=== PATIENT | female | born 1955 | race Caucasian/White ===

== ENCOUNTER 2019-04-10 11:43 | Observation (INO) ==
[2019-04-10 12:09] LABS: Microscopic, Urine URINE MICROSCOPIC (MICROSCOPIC)
[2019-04-10 12:10] LABS: Appearance,Urine CLEAR (Clear); Blood, Urine Negative (Negative); Color,Urine YELLOW (Yellow); Glucose,Urine (UA) Negative (Negative); Ketones,Urine Negative (Negative); Leukocyte Esterase,Urine TRACE (Negative); Protein,Urine TRACE (Negative); Specific Gravity, Urine >= 1.030 (1.005-1.030); Urobilinogen,Urine 0.2 EU/dl (0.2)
--- NOTE | 2019-04-10 12:10 | Emergency Department Note ---
ED Disposition Clinical Impression: Hypokalemia Hypotension Qualifiers: Hypotension type: unspecified hypotension type Qualified Code(s): I95.9 - Hypotension, unspecified Disposition: Admitted as Observation Condition on Discharge: Fair Referrals: Provider,Referral, [Primary Care Provider] - - Critical Care Critical Care Time: Yes Attestation: On 04/10/19, the high probability of a clinically significant, sudden or life threatening deterioration of the following system(s) required my full and direct attention, intervention and personal management. The time I documented below is in addition to time spent performing reported procedures but includes the following listed in this critical care notation. Total Critical Care Time: 30 Vital system(s) involved:: Circulatory Failure, Metabolic Failure My critical care processes included: Assessment & monitoring of V/S, Initial and Re-exams, Data Review/Interpretation, Coordinating Care, Medication Orders and management, Documentation Medical Decision Making - Beto Inquiry Pt receiving controlled substance: No Vital Signs: 04/10/19 11:44 04/10/19 12:14 04/10/19 12:30 Temperature 97.9 F Temperature Source Oral Pulse Rate [Right] 72 68 70 Respiratory Rate 18 20 20 Blood Pressure [Right Arm] 117/67 85/44 L 80/50 L Blood Pressure Mean [Right Arm] 83 57 60 Blood Pressure Source [Right Arm] Automatic Cuff Manual Cuff/ Auscultation Blood Pressure Position [Right Arm] Supine 02 Sat by Pulse Oximetry 97 98 98 Oxygen Delivery Method Room Air Room Air 04/10/19 13:24 04/10/19 14:00 Temperature Temperature Source Pulse Rate [Right] 87 64 Respiratory Rate 18 18 Blood Pressure [Right Arm] 92/54 L 90/66 L Blood Pressure Mean [Right Arm] 66 74 Blood Pressure Source [Right Arm] Blood Pressure Position [Right Arm] 02 Sat by Pulse Oximetry 94 L Oxygen Delivery Method Room Air - Lab Data Lab Results 04/10/19 11:56: Urine Color Yellow, Urine Appearance Clear, Urine pH 6.0, Ur Specific [place] >= 1.030, Urine Protein Trace, Urine Glucose (UA) Negative, Urine Ketones Negative, Urine Blood Negative, Urine Nitrate Negative, Urine Bilirubin Negative, Urine Urobilinogen 0.2, Ur Leukocyte Esterase Trace, Urine RBC None, Urine WBC Occasional, Ur Squamous Epith Cells 50-100, Urine Bacteria Trace 04/10/19 11:56: WBC 9.3, RBC 4.51, Hgb 13.3, Hct 40.9, MCV 90.6, MCH 29.5, MCHC 32.6, RDW 12.8, Plt Count 288, MPV 7.8, Neut % (Auto) 63.3, Lymph % (Auto) 27.3, [place] % (Auto) 5.3, Eos % (Auto) 3.3, Baso % (Auto) 0.8, Neut # (Auto) 5.9, Lymph # (Auto) 2.5, [place] # (Auto) 0.5, Eos # (Auto) 0.3, Baso # (Auto) 0.1 04/10/19 11:56: Sodium 140, Potassium 2.7 L*, Chloride 104, Carbon Dioxide 27, Anion Gap 11.7, BUN 15, Creatinine 1.33 H, Estimated Creat Clear 54, Estimated GFR 40 L, Est GFR ( Amer) 49 L, Glucose 88, Calcium 9.1, Total Bilirubin 0.4, AST 20, ALT 23, Alkaline Phosphatase 77, Troponin I < 0.02, Total Protein 7.5, Albumin 3.7, Globulin 3.8 H, Albumin/Globulin Ratio 1.0 L, Amylase 48, Lipase 108 04/10/19 11:56: Lactate 0.7 04/10/19 11:56: TSH 3.24, Free T4 Index 5.9 L, Thyroxine (T4) 19.0 H, T3 Uptake 31 Result diagrams: 04/10/19 11:56 04/10/19 11:56 Orders (Tests/Meds): ED MEDICATIONS Generic Name Dose Route Start Last Admin Trade Name Freq PRN Reason Stop Dose Admin Potassium Chloride/Water 100 mls @ 50 mls/hr 04/10/19 13:00 04/10/19 13:13 Potassium Chloride 20meq/100ml Ivpb IV 04/10/19 14:59 50 mls/hr ONCE ONE Administration Discontinued Medications Generic Name Dose Route Start Last Admin Trade Name Freq PRN Reason Stop Dose Admin Sodium Chloride 1,000 mls @ 999 mls/hr 04/10/19 12:15 04/10/19 12:11 Sod Chlor 0.9% 1000ml Bag IV 04/10/19 13:15 999 mls/hr .Q1H1M DAVON Administration Sodium Chloride 1,000 mls @ 999 mls/hr 04/10/19 12:45 04/10/19 12:43 Sod Chlor 0.9% 1000ml Bag IV 04/10/19 13:45 999 mls/hr .Q1H1M DAVON Administration Ioversol 75 ml 04/10/19 12:59 04/10/19 13:02 Rad-Optiray 350 100ml Vial IV 04/10/19 13:00 75 ml ONCE ONE Administration Protocol Ondansetron HCl 4 mg 04/10/19 12:03 04/10/19 12:11 Zofran 4mg/2ml Vial IV 04/10/19 12:04 4 mg ONCE ONE Administration Potassium Chloride 40 meq 04/10/19 12:36 04/10/19 13:13 Klor-Con 20meq Tablet PO 04/10/19 12:37 40 meq ONCE ONE Administration Sodium Chloride 10 ml 04/10/19 12:59 04/10/19 13:02 Rad-Saline Flush 10ml Syringe IV 04/10/19 13:00 10 ml ONCE ONE Administration ORDERS Category Date Time Status Diarrhea 6-11 Panel, Cdiff PCR Stat Lab 04/10/19 12:24 Ordered Blood Culture Stat Micro 04/10/19 11:56 Received ECG Request by /Darion Stat Y 04/10/19 12:03 Ordered - Radiology Data #1 Image(s): Chest Image Reviewed: Yes I reviewed the patient's radiology image Preliminary Findings: Normal/NAD - CT Data CT Scan: Head, Abdomen, Pelvis Time Received: 13:[address] Reviewed: Yes: I have viewed the radiologist's interpretation Findings Narrative: Abdo/Pelvis: FINDINGS: LOWER THORAX: Atelectatic changes are present in the lung bases. ABDOMEN & PELVIS: The liver, spleen, adrenal glands, and pancreas have an unremarkable appearance. No renal or ureteral calculi or hydronephrosis. There is a 10 mm left renal cyst noted. The gallbladder is distended. Unremarkable appendix. There are scattered fluid-filled loops of small and large bowel with air-fluid levels. These loops do not appear distended consistent with ileus/enteritis. A small hyperdensity is present in the ascending colon and may be due to ingested medication. Prior hysterectomy. There are degenerative changes in the spine. A sclerotic focus is present in the left femoral neck at 1.7 cm consistent with a bone island. IMPRESSION: 1. Scattered fluid-filled loops of small and large bowel nondistended consistent with enteritis/colitis. Dictated by: Felix Enciso MD 04/10/2019 13:17 Electronically signed by Felix Enciso MD in [place] 04/10/2019 13:17 Head: FINDINGS: No midline shift, mass effect, intracranial hemorrhage, hydrocephalus, or extra-axial fluid collection is evident. The calvarium has an unremarkable appearance. No mastoid effusion. No sinus air-fluid level. IMPRESSION: No acute intracranial finding Dictated by: Felix Enciso MD 04/10/2019 13:13 Electronically signed by Felix Enciso MD in [place] 04/10/2019 13:13 - ECG Data Tracing #1 EKG interpreted by Abhijeet Michael MD: Rhythm: sinus Rate: 63 [place]: normal Ectopy: none Conduction: normal ST Segment Changes: none T Wave Changes: none Q Waves: none No evidence of acute ischemia or injury Low voltage QRS - Physician Consults Physician Consulted: Manjeet Time: 14:29 Reason -: Admission Comment/Response: Agrees to admit the patient to the hospital. We discussed the patient's clinical information, including history, exam, laboratory and radiology results and ED course. Per hospital procedure, I will write temporary bridge inpatient orders on the patient. Specific orders requested by the admitting physician: Half-normal saline with potassium General Adult HPI - General Chief complaint: Abdominal Pain Stated complaint: can't eat,unbalanced,nausea Time Seen by Provider: 04/10/19 12:10 Mode of Arrival: Ambulatory Limitations: No Limitations Description of Symptoms (Recalled from ER Triage Doc. by RN): Pt states for 2 weeks she has been week, feverish, vomiting, and overall not feeling well. Pt states she also has severe abd pain. - History of Present Illness HPI narrative: Brought in by a friend. She has been sick for more than a month. Says she was initially admitted to [facility] in [place] for about 3 days diagnosed with a urinary tract infection. She has been told she has some sort of kidney problems and is supposed to go in therapy "for her kidney muscles". Has had continued problems since her admission. Not urinating frequently. Poor ap petite and intake. For the past 2 weeks has been more sick. She has had a cough productive of green sputum. Green diarrhea a couple of times a day, her urine is also pea green. She thinks she had a fever when this first started a couple of weeks ago. She has generalized abdominal pain. She has a sore throat. Says she has been here to the urgent treatment center for her illness. Review of records shows that she was here on 03/18/2019 and diagnosed with sinusitis, started on Cefdinir, Flonase, and Tessalon. She lives in [place], but her friend says she does not want her to return home until she gets to feeling better so she has been staying with her in [place] for the past month. - Related Data Home Medications Medication Instructions Recorded Confirmed Baclofen [Lioresal 10mg tablet] 10 mg PO DAILY 04/10/19 04/10/19 Duloxetine HCl 60 mg PO DAILY 04/10/19 04/10/19 Estradiol 2 mg PO DAILY 04/10/19 04/10/19 Fluticasone Propionate [Flonase 1 spr NS DAILY 04/10/19 04/10/19 50mcg nasal spray 16gm] Gabapentin [Gabapentin 300mg Cap] 300 mg PO TID 04/10/19 04/10/19 Hydrocodone/Acetaminophen 1 tab PO Q4-6H PRN 04/10/19 04/10/19 [Hydrocodone-Acetamin 7.5-325] Levothyroxine Sodium 50 mcg PO DAILY 04/10/19 04/10/19 [Levothyroxine 50mcg (0.05mg) Tab] Lisinopril [Lisinopril 10mg Tab] 10 mg PO DAILY 04/10/19 04/10/19 Omeprazole 40 mg PO DAILY 04/10/19 04/10/19 Sertraline HCl [Zoloft 100mg 100 mg PO DAILY 04/10/19 04/10/19 tablet] Trazodone HCl 100 mg PO DAILY 04/10/19 04/10/19 Venlafaxine HCl [Effexor 37.5mg 37.5 mg PO DAILY 04/10/19 04/10/19 tablet] clonazePAM [Clonazepam] 1 mg PO BIDP PRN 04/10/19 04/10/19 Allergies Allergy/AdvReac Type Severity Reaction Status Date / Time Penicillins Allergy Verified 12/16/18 15:55 [facility] History - Hepatitis A Screen Drug use history?: No High risk sexual behaviors?: No History of sexually transmitted infection?: No Currently employed?: No Childcare worker?: No Do you have indoor plumbing?: Yes Do you have electricity?: Yes Attestation statement:: This patient has been screened for Hepatitis A risk factors. I have reviewed the patient's past medical history: Yes Medical History: Reports:: Diabetes Mellitus Type 1, Diabetes Mellitus Type 2 Denies:: Cancer, Internal Pacemaker, MRSA Other Surgeries: No: Pacemaker Amputation: No Fractures: Yes (foot) - Social History Smoking Status: Current every day smoker Alcohol Intake: never Occupational Status: other Housing: apartment ROS Obtained: Yes All systems reviewed & no additional complaints - Constitutional Constitutional: Reports fatigue, Reports fever(s), Reports poor appetite, Reports malaise, Reports weakness - ENT Ears, Nose, Mouth, and Throat: Reports sore throat - Cardiovascular Cardiovascular: Denies chest pain - Respiratory Respiratory: Yes cough, No dyspnea - Gastrointestinal Gastrointestingal: Reports: abdominal pain, diarrhea, nausea - Genitourinary Female Genitourinary: Reports as per HPI Physical Exam - General General appearance: alert, in no apparent distress - Head Head exam: atraumatic, normocephalic - Eye Eye exam: Present: normal appearance, EOMI - ENT ENT exam: Present: normal oropharynx, mucous membranes moist, TM's normal bilaterally - Neck Neck exam: Present: normal inspection, trachea midline - Chest Chest inspection: Present: normal inspection, symmetric chest wall rise - Respiratory Respiratory exam: Present: normal lung sounds bilaterally. Absent: respiratory distress - Cardiovascular Cardiovascular exam: Present: regular rate, normal rhythm, normal heart sounds - Abdominal Exam Abdominal exam: Present: soft, tenderness, normal bowel sounds. Absent: distention, guarding, rebound, rigidity Abdominal tenderness: Present: diffuse, mild - Extremities Exam Extremities exam: Present: normal inspection - Neurological Exam Neurological exam: Present: alert, oriented X3, CN II-XII intact. Absent: motor sensory deficit - Psychiatric Psychiatric exam: Present: normal affect, normal mood - Skin Skin exam: Present: warm, dry
[2019-04-10 12:11] LABS: Basophils # 0.1 K/mm3 (0-0.2); Basophils % 0.8 % (0.1-2.0); Eosinophils # 0.3 K/mm3 (0.0-0.4); Eosinophils % 3.3 % (0.1-12.0); Hematocrit 40.9 % (37.0-47.0); Hemoglobin 13.3 g/dL (12.2-16.2); Lymphocytes # 2.5 K/mm3 (0.7-4.5); Lymphocytes % 27.3 % (10-50); Mean Corpuscular HGB Conc 32.6 g/dL (31.8-35.4); Mean Corpuscular Volume 90.6 fl (81-99); Mean Platelet Volume 7.8 fl (7.4-10.4); Monocytes # 0.5 K/mm3 (0.1-1.0); Monocytes % 5.3 % (1.7-9.3); Neutrophils # 5.9 K/mm3 (1.8-7.8); Neutrophils % 63.3 % (37.0-80.0); Platelet Count 288 K/mm3 (142-424); Red Blood Count 4.51 M/mm3 (4.20-5.40); Red Cell Distribution Width 12.8 % (11.5-17.5); White Blood Count 9.3 K/mm3 (4.8-10.8)
[2019-04-10 12:15] LABS: Bilirubin,Urine Negative (Negative)
[2019-04-10 12:20] LABS: Bacteria,Urine Trace /lpf; Squamous Epithelial Cell,Urine 50-100 #/hpf (0-5); WBC,Urine Occasional #/hpf (0-3)
[2019-04-10 12:23] LABS: Alanine Aminotransferase 23 U/L (12-78); Albumin Level 3.7 gm/dL (3.4-5.0); Alkaline Phosphatase 77 U/L (46-116); Amylase 48 U/L (25-115); Anion Gap 11.7 mEq/L (5-15); Aspartate Amino Transferase 20 U/L (15-37); Bilirubin,Total 0.4 mg/dL (0.2-1.0); Blood Urea Nitrogen 15 mg/dL (7-18); Calcium 9.1 mg/dL (8.5-10.1); Carbon Dioxide 27 mmol/L (21.0-32.0); Chloride 104 mmol/L (98-107); Globulin 3.8 gm/dl (1.3-3.2); Glucose 88 mg/dL (74-106); Sodium 140 mmol/L (136-145); Total Protein,Serum 7.5 gm/dL (6.4-8.2)
[2019-04-10 13:48] LABS: Free Thyroxine Index 5.9 ug/dL (5.93-13.13); Thyroid Stimulating Hormone 3.24 uIU/ml (0.358-3.740)
--- NOTE | 2019-04-10 15:26 | History & Physical Report ---
*Chief complaint: Nausea, vomiting, diarrhea; hypotension *History of present illness: Ms. Ross is a 64-year-old female who lives in [facility] with a history of kidney problems, hypertension, anxiety, hypothyroidism, and recent urinary tract infection requiring hospitalization at [facility] to receive IV antibiotics. She has been home from the hospital for several weeks and is now staying with a friend here in [place]. She has felt worse for the past 2 weeks and has been to the urgent treatment center a couple of times. She presented to [facility] emergency room with continued vomiting and diarrhea as well as diminished urinary output and a productive cough of green sputum. She states she has not been able to retain food for about the last 2 days and has had a decrease in her urinary output. She describes her diarrhea, vomitus, and urine as all being green. She does have generalized abdominal pain and a sore throat. On 03/18/2019 she was diagnosed with sinusitis and was started on Ceftin, flonase, and Tessalon Perles. With evaluation in the emergency room she was found to be hypotensive with a blood pressure running systolically in the 90s and 80s. CBC was noted to be normal; urinalysis was unremarkable; chest x-ray was without acute changes; electrolytes revealed hypokalemia with potassium of 2.7. BuN was 15 with a creatinine of 1.33. CT of the abdomen revealed a possible enteritis. She was then admitted for further evaluation and treatment. At the time of this exam in the emergency room she appears not to feel very well. She states she last vomited and had diarrhea prior to coming to the emergency room. She takes multiple medications and has been taking them sporadically as she has been able to tolerate. She feels like she did take her lisinopril this morning. She denies chest pain but is short of breath. She has diffuse abdominal pain. She denies heart palpitations and leg edema. She did have a fall yesterday but did catch herself and has had no injuries. [facility] History Medical History: Reports:: Anxiety, Depression (No problem who is fine nothing about this lady with this mammogram this is ), Diabetes Mellitus Type 1, Diabetes Mellitus Type 2 Denies:: Cancer, Gastroesophageal Reflux Disease(GERD), Gastrointestinal Bleed, Internal Pacemaker, MRSA *Have you ever received a pneumonia vaccine?: No *Have you received a flu vaccine this season?: No Other Medical History: Reports: Arthritis (Rheumatoid), Hypothyroidism Other Surgeries: Yes: Hysterectomy-Total. No: Pacemaker Amputation: No Fractures: Yes (foot) Comment: She has had surgery on both her hands or feet for her arthritis - *Social History Smoking Status: Never smoker Alcohol Intake: never *Occupational Status:: other Housing: apartment Household Members: significant other, friend(s) *Travel in the last 8 weeks: None Family Hx:: Cancer Review of Systems - Constitutional Reports body ache(s), Reports fever(s), Reports headache(s), Reports lack of energy - Eyes Reports change in vision - ENT Reports poor balance, Reports dizziness, Reports dry mouth, Reports ear pain, Reports nasal congestion, Reports sore throat, Reports dizziness - *Cardiovascular Reports shortness of breath, Denies chest pain, Denies leg swelling - *Respiratory Reports change in phlegm color, Reports chest congestion, Reports cough, Reports shortness of breath, Denies coughing up blood - *Gastrointestinal Reports abdominal pain, Reports change in bowel habits, Reports difficulty swallowing (Diffuse), Reports excessive passing of gas, Reports nausea, Reports vomiting, Denies belching, Denies constipation, Denies heartburn, Denies vomiting blood, Denies bright, red blood in stools, Denies black, tarry stools - *Genitourinary Denies painful urination Comments: Diminished urinary output; urine appears green - *Musculoskeletal Reports abnormal walking, Reports back pain (For which she takes Peshtigo and baclofen), Reports muscle weakness, Reports body aches - *Neurologic Reports abnormal walking, Reports unsteadiness, Reports dizziness, Reports frequent falls, Reports headache(s), Reports fainting, Reports weakness, Denies seizure-like activity Meds Home Medications Medication Instructions Recorded Confirmed Type Baclofen [Lioresal 10mg tablet] 10 mg PO DAILY 04/10/19 04/10/19 History Bethanechol Chloride [Urecholine 25 mg PO QID 04/10/19 04/10/19 History 25mg Tablet] Duloxetine HCl 60 mg PO DAILY 04/10/19 04/10/19 History Estradiol 2 mg PO DAILY 04/10/19 04/10/19 History Fexofenadine HCl [Allergy Relief] 180 mg PO DAILY 04/10/19 04/10/19 History Fluticasone Propionate [Flonase 1 spr NS DAILY 04/10/19 04/10/19 History 50mcg nasal spray 16gm] Gabapentin [Gabapentin 300mg Cap] 300 mg PO TID 04/10/19 04/10/19 History Hydrocodone/Acetaminophen 1 tab PO Q4-6H PRN 04/10/19 04/10/19 History [Hydrocodone-Acetamin 7.5-325] Levothyroxine Sodium 50 mcg PO DAILY 04/10/19 04/10/19 History [Levothyroxine 50mcg (0.05mg) Tab] Lisinopril [Lisinopril 10mg Tab] 10 mg PO DAILY 04/10/19 04/10/19 History Omeprazole 40 mg PO DAILY 04/10/19 04/10/19 History Potassium Chloride 20 meq PO DAILY 04/10/19 04/10/19 History Sertraline HCl [Zoloft 100mg 100 mg PO DAILY 04/10/19 04/10/19 History tablet] Trazodone HCl 100 mg PO DAILY 04/10/19 04/10/19 History Venlafaxine HCl [Effexor 37.5mg 37.5 mg PO DAILY 04/10/19 04/10/19 History tablet] clonazePAM [Clonazepam] 1 mg PO BIDP PRN 04/10/19 04/10/19 History Allergies Allergy/AdvReac Type Severity Reaction Status Date / Time Penicillins Allergy Verified 12/16/18 15:55 Exam Vital signs and Labs for Last 24 Hours: Temp Pulse Resp BP Pulse Ox 98.4 F 78 18 93/50 L 94 L 04/10/19 14:50 04/10/19 14:50 04/10/19 14:50 04/10/19 14:50 04/10/19 13:24 Laboratory Results - last 24 hr 04/10/19 11:56: Urine Color Yellow, Urine Appearance Clear, Urine pH 6.0, Ur Specific [place] >= 1.030, Urine Protein Trace, Urine Glucose (UA) Negative, Urine Ketones Negative, Urine Blood Negative, Urine Nitrate Negative, Urine Bilirubin Negative, Urine Urobilinogen 0.2, Ur Leukocyte Esterase Trace, Urine RBC None, Urine WBC Occasional, Ur Squamous Epith Cells 50-100, Urine Bacteria Trace 04/10/19 11:56: WBC 9.3, RBC 4.51, Hgb 13.3, Hct 40.9, MCV 90.6, MCH 29.5, MCHC 32.6, RDW 12.8, Plt Count 288, MPV 7.8, Neut % (Auto) 63.3, Lymph % (Auto) 27.3, [place] % (Auto) 5.3, Eos % (Auto) 3.3, Baso % (Auto) 0.8, Neut # (Auto) 5.9, Lymph # (Auto) 2.5, [place] # (Auto) 0.5, Eos # (Auto) 0.3, Baso # (Auto) 0.1 04/10/19 11:56: Sodium 140, Potassium 2.7 L*, Chloride 104, Carbon Dioxide 27, Anion Gap 11.7, BUN 15, Creatinine 1.33 H, Estimated Creat Clear 54, Estimated GFR 40 L, Est GFR ( Amer) 49 L, Glucose 88, Calcium 9.1, Total Bilirubin 0.4, AST 20, ALT 23, Alkaline Phosphatase 77, Troponin I < 0.02, Total Protein 7.5, Albumin 3.7, Globulin 3.8 H, Albumin/Globulin Ratio 1.0 L, Amylase 48, Lipase 108 04/10/19 11:56: Lactate 0.7 04/10/19 11:56: TSH 3.24, Free T4 Index 5.9 L, Thyroxine (T4) 19.0 H, T3 Uptake 31 I & O for Last 24 hours: Intake & Output 04/08/19 04/09/19 04/10/19 04/11/19 11:59 11:59 11:59 11:59 Intake Total 2099 Balance 2099 Weight 172 lb 172 lb Radiology Reports for the Last 24 Hours: 03/10/2019 CT of the abdomen/pelvis IMPRESSION: 1. Scattered fluid-filled loops of small and large bowel nondistended consistent with enteritis/colitis 04/10/2019 chest x-ray IMPRESSION: No acute findings. 04/10/2019 CT of the head IMPRESSION: No acute intracranial finding - Constitutional no acute distress, cooperative - *Routine HEENT Exam Head: Present: normocephalic, atraumatic Eye: Present: PERRL. Absent: conjunctival icterus, scleral injection ENT: Present: mucous membranes dry, oropharynx clear - *Routine Neck Exam Present: supple. Absent: carotid bruit, lymphadenopathy, thyromegaly - *Routine Respiratory Exam Present: crackles (Few bibasilar) - *Routine Cardiovascular Exam Present: RRR - *Routine Abdominal Exam Present: soft, normoactive bowel sounds, tenderness (Diffusely), distended - *Routine Extremities Exam Absent: edema, calf tenderness Comments: Scars from previous surgery on dorsal aspect of left foot and ankle - *Routine Neurological Exam Present: alert, oriented X3 - Routine Psychiatric Exam Present: anxious Assessment and Plan (1) Abdominal pain Current visit: Yes Status: Acute Category: Medical Code(s): R10.9 - Unspecified abdominal pain (2) Anxiety Current visit: Yes Status: Acute Category: Medical Code(s): F41.9 - Anxiety disorder, unspecified (3) Hypothyroidism Current visit: Yes Status: Acute Category: Medical Code(s): E03.9 - Hypothyroidism, unspecified (4) Renal insufficiency Current visit: Yes Status: Acute Category: Medical Code(s): N28.9 - Disorder of kidney and ureter, unspecified (5) Hypokalemia Current visit: Yes Status: Acute Category: Medical Code(s): E87.6 - Hypokalemia (6) Hypotension Current visit: Yes Status: Acute Qualifiers: Hypotension type: unspecified hypotension type Qualified Code(s): I95.9 - Hypotension, unspecified Category: Medical Code(s): I95.9 - Hypotension, unspecified - Assessment and plan all Dx Assessment and Plan for all problems:: Patient was given a bolus of IV fluids in the emergency room along with p.o. potassium. We will continue with IV fluids with potassium at 100/ hour. We will obtain a diarrhea panel. We will continue to monitor her blood chemistries.
--- NOTE | 2019-04-10 15:49 | Pharmacy Consult Notes ---
[facility] Pharmacy VTE Monitoring - Patient Demographics Admission date: 04/10/19 Report Date: 04/10/19 Time: 15:49 Allergies/Adverse Reactions: Patient Allergies Penicillins Allergy (Verified 12/16/18 15:55) Height: 1.55 m Weight: 79.067 kg Patient Problems: Current Active Problems Hypotension (Acute) Hypokalemia (Acute) Abdominal pain (Acute) Anxiety (Acute) Hypothyroidism (Acute) Renal insufficiency (Acute) - VTE Risk Labs: VTE Related Lab Results Hgb 13.3 g/dL (12.2-16.2) 04/10/19 11:56 Hct 40.9 % (37.0-47.0) 04/10/19 11:56 Plt Count 288 K/mm3 (142-424) 04/10/19 11:56 BUN 15 mg/dL (7-18) 04/10/19 11:56 Creatinine 1.33 mg/dL (0.55-1.02) H 04/10/19 11:56 Estimated Creat Clear 54 mL/min (50-200) 04/10/19 11:56 Was VTE Risk Assessment Performed: Yes VTE Score: 8 VTE Risk Level: Moderate Risk - Prophylaxis VTE Prophylaxis Ordered?: Yes Types of VTE Prophylaxis: TEDS Knee High Location of Applied Device: Bilateral Lower Extremeties - VTE Diagnosis Confirmed Treatment or plan recommended: Continue Current Treatment
[2019-04-10 19:07] LABS: Anion Gap 9.5 mEq/L (5-15)
[2019-04-10 19:17] LABS: Calcium 7.3 mg/dL (8.5-10.1)
[2019-04-11 06:51] LABS: Basophils % 1.1 % (0.1-2.0); Eosinophils % 3.3 % (0.1-12.0); Hematocrit 35.8 % (37.0-47.0); Lymphocytes % 27.8 % (10-50); Mean Corpuscular HGB Conc 30.2 g/dL (31.8-35.4); Mean Corpuscular Volume 92.2 fl (81-99); Mean Platelet Volume 7.5 fl (7.4-10.4); Monocytes % 5.8 % (1.7-9.3); Platelet Count 207 K/mm3 (142-424); Red Blood Count 3.89 M/mm3 (4.20-5.40); Red Cell Distribution Width 13.7 % (11.5-17.5); White Blood Count 5.8 K/mm3 (4.8-10.8)
[2019-04-11 06:52] LABS: Basophils # 0.1 K/mm3 (0-0.2); Eosinophils # 0.2 K/mm3 (0.0-0.4); Lymphocytes # 1.5 K/mm3 (0.7-4.5); Monocytes # 0.3 K/mm3 (0.1-1.0); Neutrophils # 2.6 K/mm3 (1.8-7.8)
[2019-04-11 06:58] LABS: Hemoglobin 10.8 g/dL (12.2-16.2)
[2019-04-11 07:11] LABS: Albumin Level 2.8 gm/dL (3.4-5.0); Anion Gap 10.2 mEq/L (5-15); Bilirubin,Total 0.2 mg/dL (0.2-1.0); Calcium 7.6 mg/dL (8.5-10.1); Globulin 2.9 gm/dl (1.3-3.2); Total Protein,Serum 5.7 gm/dL (6.4-8.2)
--- NOTE | 2019-04-11 08:31 | Progress Note ---
Internal Medicine - PN: Subj *Date: 04/11/19 *Time: 08:28 Interval history: Patient would like her normal home medications restarted today. She also continues with diarrhea and has a horrible cough. She has had some wheezing. She is requesting some cough medication and possibly an inhaler nebulizer treatment. She states she did not rest well throughout the night. Exam Vital signs and Labs for Last 24 Hours: Temp Pulse Resp BP Pulse Ox 98.0 F 69 18 93/50 L 96 04/11/19 04:00 04/11/19 04:00 04/11/19 04:00 04/11/19 04:00 04/11/19 04:00 Laboratory Results - last 24 hr 04/10/19 11:56: Urine Color Yellow, Urine Appearance Clear, Urine pH 6.0, Ur Specific [place] >= 1.030, Urine Protein Trace, Urine Glucose (UA) Negative, Urine Ketones Negative, Urine Blood Negative, Urine Nitrate Negative, Urine Bilirubin Negative, Urine Urobilinogen 0.2, Ur Leukocyte Esterase Trace, Urine RBC None, Urine WBC Occasional, Ur Squamous Epith Cells 50-100, Urine Bacteria Trace 04/10/19 11:56: WBC 9.3, RBC 4.51, Hgb 13.3, Hct 40.9, MCV 90.6, MCH 29.5, MCHC 32.6, RDW 12.8, Plt Count 288, MPV 7.8, Neut % (Auto) 63.3, Lymph % (Auto) 27.3, [place] % (Auto) 5.3, Eos % (Auto) 3.3, Baso % (Auto) 0.8, Neut # (Auto) 5.9, Lymph # (Auto) 2.5, [place] # (Auto) 0.5, Eos # (Auto) 0.3, Baso # (Auto) 0.1 04/10/19 11:56: Sodium 140, Potassium 2.7 L*, Chloride 104, Carbon Dioxide 27, Anion Gap 11.7, BUN 15, Creatinine 1.33 H, Estimated Creat Clear 54, Estimated GFR 40 L, Est GFR ( Amer) 49 L, Glucose 88, Calcium 9.1, Total Bilirubin 0.4, AST 20, ALT 23, Alkaline Phosphatase 77, Troponin I < 0.02, Total Protein 7.5, Albumin 3.7, Globulin 3.8 H, Albumin/Globulin Ratio 1.0 L, Amylase 48, Lipase 108 04/10/19 11:56: Lactate 0.7 04/10/19 11:56: TSH 3.24, Free T4 Index 5.9 L, Thyroxine (T4) 19.0 H, T3 Uptake 31 04/10/19 16:50: Stl Aeromonas (PCR) Not detected, Stl C. cayetanensis PCR Not detected, Stool Rotavirus (PCR) Not detected, Stl Adenov F 40/41 PCR Not detected, Stool Astrovirus (PCR) Not detected, Stool Campylobacter PCR Not detected, Stl C.difficile Tox PCR Not detected, Stool Cryptosporidium PCR Not detected, Stl E.coli Shiga Tox PCR Not detected, Stool E coli O157 PCR Not detected, Stl Enterotoxigenic E PCR Not detected, Stool EPEC (PCR) Not detected, Stool EAEC (PCR) Not detected, Stl E. histolytica PCR Not detected, Stool Giardia Lamblia PCR Not detected, Stool Salmonella PCR Not detected, Stool Sapovirus (PCR) Not detected, Stl P. shigelloides PCR Not detected, Stl S higella/EIEC PCR Not detected, St Y.enterocolitica PCR Not detected, Stool Vibrio (PCR) Not detected, Stl Vibrio cholerae PCR Not detected, Stl Norovirus GI/GII PCR Not detected 04/10/19 18:43: Sodium 143, Potassium 3.5 D, Chloride 112 H, Carbon Dioxide 25, Anion Gap 9.5, BUN 12, Creatinine 0.98 D, Estimated Creat Clear 73, Estimated GFR 58 L, Est GFR ( Amer) 70 D, Glucose 108 H D, Calcium 7.3 L D 04/11/19 06:22: WBC 5.8 D, RBC 3.89 L, Hgb 10.8 L D, Hct 35.8 L, MCV 92.2, MCH 27.8, MCHC 30.2 L, RDW 13.7, Plt Count 207 D, MPV 7.5, Neut % (Auto) 62.0, Lymph % (Auto) 27.8, [place] % (Auto) 5.8, Eos % (Auto) 3.3, Baso % (Auto) 1.1, Neut # (Auto) 2.6, Lymph # (Auto) 1.5, [place] # (Auto) 0.3, Eos # (Auto) 0.2, Baso # (Auto) 0.1 04/11/19 06:22: Sodium 142, Potassium 4.2, Chloride 113 H, Carbon Dioxide 23, Anion Gap 10.2, BUN 9, Creatinine 0.84, Estimated Creat Clear 73, Estimated GFR 69, Est GFR ( Amer) 83, Glucose 79 D, Calcium 7.6 L, Total Bilirubin 0. 2, AST 11 L D, ALT 16 D, Alkaline Phosphatase 59, Total Protein 5.7 L, Albumin 2.8 L D, Globulin 2.9, Albumin/Globulin Ratio 1.0 L I & O for Last 24 hours: Intake & Output 04/08/19 04/09/19 04/10/19 04/11/19 11:59 11:59 11:59 11:59 Intake Total 3783 / 3783 Balance 3783 / 3783 Weight 172 lb 174 lb 5 oz - Constitutional no acute distress - *Routine Respiratory Exam Present: wheezes. Absent: rales - *Routine Cardiovascular Exam Present: RRR - *Routine Abdominal Exam Present: soft, normoactive bowel sounds, tenderness (diffuse) - *Routine Extremities Exam Absent: cyanosis, clubbing, edema - *Routine Skin Exam Present: warm. Absent: rash - *Routine Neurological Exam Present: alert, oriented X3 Assessment and Plan (1) Abdominal pain Current visit: Yes Status: Acute Category: Medical Code(s): R10.9 - Unspecified abdominal pain (2) Anxiety Current visit: Yes Status: Acute Category: Medical Code(s): F41.9 - Anxiety disorder, unspecified (3) Hypothyroidism Current visit: Yes Status: Acute Category: Medical Code(s): E03.9 - Hyp othyroidism, unspecified (4) Renal insufficiency Current visit: Yes Status: Acute Category: Medical Code(s): N28.9 - Disorder of kidney and ureter, unspecified (5) Hypokalemia Current visit: Yes Status: Acute Category: Medical Code(s): E87.6 - Hypokalemia (6) Hypotension Current visit: Yes Status: Acute Qualifiers: Hypotension type: unspecified hypotension type Qualified Code(s): I95.9 - Hypotension, unspecified Category: Medical Code(s): I95.9 - Hypotension, unspecified (7) Diarrhea Current visit: Yes Status: Acute Category: Medical Code(s): R19.7 - Diarrhea, unspecified (8) Cough Current visit: Yes Status: Acute Category: Medical Code(s): R05 - Cough - Assessment and plan all Dx Assessment and Plan for all problems:: We will start patient on some duo nebs and Tessalon for her wheezing and cough. Will discuss which medications to continue with Dr. Burroughs. The patient is concerned about her diarrhea. Diarrhea panel is negative and potassium and renal functions have normalized. Abdominal CT questioned colitis versus enteritis. This could likely be an inflammatory colitis. Will discuss possibly adding some steroids with Dr. Burroughs or having the patient see Dr. Campbell tomorrow.
--- NOTE | 2019-04-11 21:08 | Electrocardiograph Report ---
APPROVED REPORT Exam: Resting ECG HR:63 bpm ECG Measurements Heart Rate 63 AXES DC 176 P 31 QRSd 72 QRS 33 QT 422 T81 QTc 431 <Conclusion> Normal sinus rhythm Low voltage QRS Borderline ECG Electronically signed by : Bryce Malik, 04/11/2019 21:07:35
--- NOTE | 2019-04-12 08:34 | Progress Note ---
[facility] Anesthesia Checklist - Patient Identification Patient Identification: Arm Band, Verbal (Name & ) - Structural Data Admitted From: Inpatient Planned Operative Procedure/s: Colonoscopy Consent for Planned Operative Procedure(s) Verified: Yes Verified Documents: Surgical Consent, History and Physical - NPO Status Verified Time NPO: 00:00 - Chart Verification Results Verified: CBC, BMP - Additional verifications Anesthesia Reactions: No - Airway Assessment C-Spine Mobility Assessed: Yes TMJ Mobility Assessed: Yes Dentition: Edentulous - Neurological Assessment Level of Consciousness: Awake, Alert, Appropriate, Follows Commands Hx Seizures: No Numbness or tingling in extremities: No - Anesthesia Plan Anesthesia Risk discussed: Yes Anesthesia Plan: Verified ASA Class: II Anesthesia Type: MAC [facility] History I have reviewed the patient's past medical history: Yes Medical History: Reports:: Anxiety, Depression (No problem who is fine nothing about this lady with this mammogram this is ), Heart Murmur Denies:: Cancer, Gastroesophageal Reflux Disease(GERD), Gastrointestinal Bleed, Internal Pacemaker, MRSA *Have you ever received a pneumonia vaccine?: Yes *Have you received a flu vaccine this season?: Yes Other Medical History: Reports: Arthritis (Rheumatoid), Hypothyroidism Anesthesia experience/problems:: no complications Laterality Cases: Bilateral: Other Other Surgeries: Yes: Hysterectomy-Total, Other. No: Pacemaker Amputation: No Fractures: Yes (foot) - *Social History Educational Level: Attended High School Smoking Status: Never smoker Alcohol Intake: never Substance Use Type: denies use *Occupational Status:: disabled Housing: apartment Household Members: significant other, friend(s) *Travel in the last 8 weeks: None - Psychiatric History Pschychiatric History:: Reports:: Anxiety, Depression (No problem who is fine nothing about this lady with this mammogram this is ) Family Hx:: Cancer
--- NOTE | 2019-04-12 08:42 | Procedure Note ---
[facility] Procedure Note Procedure Note:: Colonoscopy Procedure Report: Colonoscopy with cold biopsies Endoscopist: John Campbell II, MD Referring physician: Justin Burroughs MD Date of Procedure: April 12, 2019 Equipment: Olympus 180 variable stiffness pediatric colonoscope Sedation: MAC sedation Indication: Mrs. Ross is a 64-year-old female with watery diarrhea for 1 month. The patient was hospitalized at [facility] and received IV antibiotics for urosepsis. She presented to [facility] with vomiting and diarrhea and diminished urinary output. The patient did have a CT scan of the abdomen which showed scattered fluid-filled loops of small and large bowel which was nondistended and most consistent with enterocolitis. Her PCR gastrointestinal panel was negative for pathogens. The patient reports no rectal bleeding, abdominal pain or crampy discomfort. She has lost 15 pounds. She does state that her diarrhea is primarily watery diarrhea. She the has had routine colonoscopies for surveillance/screening and her last colonoscopy was 3 to 4 years ago. She reports no family history of colitis, Crohn's disease or colon cancer. The patient did have volume depletion with the diarrhea and hypokalemia. She was initially hypotensive as well. Procedure: Prior to the procedure, a history and physical exam was performed, and patient's medications and allergies were reviewed. The risks, benefits and alternatives of the sedation and procedure were discussed with the patient. All questions w ere answered and informed consent was obtained. The patient was brought to the procedure room. Patient identification and proposed procedure were verified by the physician and the nurse. The patient was placed in a left lateral decubitus position and the scope was passed under direct vision. Throughout the procedure, the patient's blood pressure, pulse, and oxygen saturations were monitored continuously. The colonoscopy was accomplished without difficulty. The patient tolerated the procedure well. Findings: On digital rectal examination there was normal rectal tone. There were no external hemorrhoids. The colonoscope was introduced through the anal canal to the rectum and advanced to the cecum. The ileocecal valve and appendiceal orifice were identified. The scope was advanced a short distance into the ileum which appeared grossly normal. The scope was then withdrawn into the colon. The cecum, ascending, transverse, descending, sigmoid and rectum were grossly normal. Cold biopsies were taken from both the right and left colon to rule out microscopic colitis. There were no mucosal abnormalities identified. Upon retroflexion within the rectum there were grade 1 internal hemorrhoids.The preparation was fair throughout with Umbarger Preparation Score of 7 out of 9. The cecal time was 10 minutes. Impression: 1. Normal colonoscopy with intubation of the terminal ileum Plan: I will follow-up the biopsies. I would recommend dietary measures, probiotics and possibly the addition of EnteraGam and/or Alinia. I will discuss the findings with patient and family.
--- NOTE | 2019-04-12 12:51 | Progress Note ---
Internal Medicine - PN: Subj *Date: 04/12/19 *Time: 12:51 Interval history: See the colonoscopy report by Dr. Campbell. She is groggy post endoscopy. We will keep her tonight and discharge her in the morning. She will follow-up with her doctor in [place]. Exam Vital signs and Labs for Last 24 Hours: Temp Pulse Resp BP Pulse Ox 97.5 F L 72 16 106/59 L 97 04/12/19 09:58 04/12/19 09:58 04/12/19 09:58 04/12/19 09:58 04/12/19 09:58 I & O for Last 24 hours: Intake & Output 04/10/19 04/11/19 04/12/19 04/13/19 11:59 11:59 11:59 11:59 Intake Total 4143 / 4143 1266 / 1266 Output Total 400 / 400 Balance 4143 / 4143 866 / 866 Weight 172 lb 174 lb 5.006 oz 174 lb 4 oz Microbiology Reports for the Last 24 Hours: Microbiology 04/10/19 11:56 Blood Blood Culture - Preliminary NO GROWTH AFTER 48 HOURS 04/10/19 11:56 Blood Blood Culture - Preliminary NO GROWTH AFTER 48 HOURS - Constitutional no acute distress - *Routine HEENT Exam Head: Present: normocephalic ENT: Present: mucous membranes moist - Routine Chest/Breast/Axilla Exam Chest wall: Absent: tenderness - *Routine Respiratory Exam Present: CTA bilaterally - *Routine Cardiovascular Exam Present: RRR - *Routine Abdominal Exam Present: soft (Hyperactive bowel sounds post endoscopy) - *Routine Extremities Exam Absent: edema - *Routine Neurological Exam Present: alert, oriented X3 Assessment and Plan (1) Abdominal pain Current visit: Yes Status: Acute Category: Medical Code(s): R10.9 - Unspecified abdominal pain (2) Anxiety Current visit: Yes Status: Acute Category: Medical Code(s): F41.9 - Anxiety disorder, unspecified (3) Hypothyroidism Current visit: Yes Status: Acute Category: Medical Code(s): E03.9 - Hypothyroidism, unspecified (4) Renal insufficiency Current visit: Yes Status: Acute Category: Medical Code(s): N28.9 - Disorder of kidney and ureter, unspecified (5) Hypokalemia Current visit: Yes Status: Acute Category: Medical Code(s): E87.6 - Hypokalemia (6) Hypotension Current visit: Yes Status: Acute Qualifiers: Hypotension type: unspecified hypotension type Qualified Code(s): I95.9 - Hypotension, unspecified Category: Medical Code(s): I95.9 - Hypotension, unspecified (7) Diarrhea Current visit: Yes Status: Acute Category: Medical Code(s): R19.7 - Diarrh ea, unspecified (8) Cough Current visit: Yes Status: Acute Category: Medical Code(s): R05 - Cough - Assessment and plan all Dx Assessment and Plan for all problems:: Plan discharge in a.m. We discussed the change in her medication regimen. She will follow-up with her doctor in [place].
--- NOTE | 2019-04-13 08:39 | Progress Note ---
Internal Medicine - PN: Subj *Date: 04/13/19 *Time: 08:36 Interval history: The patient is stable and ready for discharge. She actually seems pleased this morning with the changes that we have made in her medications! She is complementary of her care here. Her diarrhea seems to have resolved yesterday. She will be discharged. She is to follow-up with her doctor in [place]. Exam Vital signs and Labs for Last 24 Hours: Temp Pulse Resp BP Pulse Ox 98.0 F 82 18 132/78 98 04/13/19 08:00 04/13/19 08:00 04/13/19 08:00 04/13/19 08:00 04/13/19 08:00 I & O for Last 24 hours: Intake & Output 04/10/19 04/11/19 04/12/19 04/13/19 11:59 11:59 11:59 11:59 Intake Total 4143 / 4143 1266 / 1266 440 / 440 Output Total 400 / 400 Balance 4143 / 4143 866 / 866 440 / 440 Weight 172 lb 174 lb 5.006 oz 174 lb 4 oz 174 lb 5 oz Microbiology Reports for the Last 24 Hours: Microbiology 04/10/19 11:56 Blood Blood Culture - Preliminary NO GROWTH AFTER 48 HOURS 04/10/19 11:56 Blood Blood Culture - Preliminary NO GROWTH AFTER 48 HOURS - Constitutional no acute distress - *Routine HEENT Exam Head: Present: normocephalic Eye: Present: PERRL ENT: Present: mucous membranes moist - Routine Chest/Breast/Axilla Exam Chest wall: Absent: tenderness - *Routine Respiratory Exam Present: CTA bilaterally (A faint wheezes heard on the right. Otherwise the lungs are clear.) - *Routine Cardiovascular Exam Present: RRR. Absent: murmur - *Routine Abdominal Exam Present: soft. Absent: tenderness - *Routine Extremities Exam Absent: edema - *Routine Neurological Exam Present: alert, oriented X3 Assessment and Plan (1) Abdominal pain Current visit: Yes Status: Acute Category: Medical Code(s): R10.9 - Unspecified abdominal pain (2) Anxiety Current visit: Yes Status: Acute Category: Medical Code(s): F41.9 - Anxiety disorder, unspecified (3) Hypothyroidism Current visit: Yes Status: Acute Category: Medical Code(s): E03.9 - Hypothyroidism, unspecified (4) Renal insufficiency Current visit: Yes Status: Acute Category: Medical Code(s): N28.9 - Disorder of kidney and ureter, unspecified (5) Hypokalemia Current visit: Yes Status: Acute Category: Medical Code(s): E87.6 - Hypokalemia (6) Hypotension Current visit: Yes Status: Acute Qualifiers: Hypotension type: unspecified hypotension type Qualified Code(s): I95.9 - Hypotension, unspecified Category: Medical Code(s): I95.9 - Hypotension, unspecified (7) Diarrhea Current visit: Yes Status: Acute Category: Medical Code(s): R19.7 - Diarrhea, unspecified (8) Cough Current visit: Yes Status: Acute Category: Medical Code(s): R05 - Cough - Assessment and plan all Dx Assessment and Plan for all problems:: Discharge. See medication list. She has a Ventolin inhaler at home and I encouraged her to use that at least 3 times a day.
--- NOTE | 2019-04-15 21:39 | Discharge Summary ---
General - General Admission date:: 04/10/19 Discharge date: 04/13/19 HPI HPI: Ms. Ross is a 64-year-old female who lives in [place] with a history of kidney problems, hypertension, anxiety, hypothyroidism, and recent urinary tract infection requiring hospitalization at [facility] to receive IV antibiotics. She has been home from the hospital for several weeks and is now staying with a friend here in [place]. She has felt worse for the past 2 weeks and has been to the urgent treatment center a couple of times. She presented to [facility] emergency room with continued vomiting and diarrhea as well as diminished urinary output and a productive cough of green sputum. She states she has not been able to retain food for about the last 2 days and has had a decrease in her urinary output. She describes her diarrhea, vomitus, and urine as all being green. She does have generalized abdominal pain and a sore throat. On 03/18/2019 she was diagnosed with sinusitis and was started on Ceftin, flonase, and Tessalon Perles. With evaluation in the emergency room she was found to be hypotensive with a blood pressure running systolically in the 90s and 80s. CBC was noted to be normal; urinalysis was unremarkable; chest x-ray was without acute changes; electrolytes revealed hypokalemia with potassium of 2.7. BuN was 15 with a creatinine of 1.33. CT of the abdomen revealed a possible enteritis. She was then admitted for further evaluation and treatment. At the time of this exam in the emergency room she appears not to feel very well. She states she last vomited and had diarrhea prior to coming to the emergency room. She takes multiple medications and has been taking them sporadically as she has been able to tolerate. She feels like she did take her lisinopril this morning. She denies chest pain but is short of breath. She has diffuse abdominal pain. She denies heart palpitations and leg edema. She did have a fall yesterday but did catch herself and has had no injuries. Hospital Course Hospital Course: The patient's abdominal CT showed enteritis/colitis. Her diarrhea panel was negative. She had a chest x-ray showing nothing acute. She also had a head CT showing nothing acute. She was admitted and given a bolus of IV fluids in the emergency room along with p.o. potassium for hypokalemia. Dr. Burroughs did discuss with the patient that it was highly unusual to be on four antidepressants that she had been taking in combination. He did omit some of these medications. The patient's potassium normalized and her blood pressure improved. The patient was upset that she was not receiving her normal medications. She was also concerned that she was not getting enough gabapentin as she stated she took 900 mg 4 times a day. She was also worried about not getting her Vicodin that she took for pain. Dr. Burroughs ordered a scheduled dose of the Vicodin and increased her gabapentin to 600 mg 3 times a day. GI was consulted for her diarrhea and she was started on some Imodium. She was also complaining of a cough and some wheezing, therefore duo nebs and Tessalon were ordered. She was seen in consultation by Dr. Campbell who performed a colonoscopy. It was normal. He recommended dietary measures, probiotics, and possibly the addition of Alinia. The patient wanted to stay an extra day as she felt groggy the day of her colonoscopy. She was kept overnight for monitoring. Her blood cultures showed no growth. By 04/13/2019, the patient was ready to be discharged. She actually seemed pleased with the changes that had been made in her medications and was complementary of her care at [facility]. Her diarrhea resolved and she was stable to be discharged and will follow up with her physician in [place]. She has a Ventolin inhaler at home and was encouraged to use this at least 3 times a day. Objective Vital signs: Temp Pulse Resp BP Pulse Ox 98.0 F 82 18 132/78 98 04/13/19 08:00 04/13/19 08:00 04/13/19 08:00 04/13/19 08:00 04/13/19 08:00 Narrative: - Constitutional no acute distress, cooperative - *Routine HEENT Exam Head: Present: normocephalic, atraumatic Eye: Present: PERRL. Absent: conjunctival icterus, scleral injection ENT: Present: mucous membranes dry, oropharynx clear - *Routine Neck Exam Present: supple. Absent: carotid bruit, lymphadenopathy, thyromegaly - *Routine Respiratory Exam Present: crackles (Few bibasilar) - *Routine Cardiovascular Exam Present: RRR - *Routine Abdominal Exam Present: soft, normoactive bowel sounds, tenderness (Diffusely), distended - *Routine Extremities Exam Absent: edema, calf tenderness Comments: Scars from previous surgery on dorsal aspect of left foot and ankle - *Routine Neurological Exam Present: alert, oriented X3 - Routine Psychiatric Exam Present: anxious DS: Diagnosis - Discharge Diagnosis (1) Abdominal pain Status: Acute (2) Anxiety Status: Acute (3) Hypothyroidism Status: Acute (4) Renal insufficiency Status: Acute (5) Hypokalemia Status: Acute (6) Hypotension Status: Acute (7) Diarrhea Status: Acute (8) Cough Status: Acute Discharge Plan - Patient Discharge Instructions ACTIVITY: Continue current activity DIET: advance to your usual diet Patient Instructions: Colonoscopy, DI for Colonoscopy, DI for Hypokalemia, DI for Surgical Site Infection, DI for Hypotension - Follow up Plan Follow up with: Casa Burroughs MD [Staff Physician] - 04/17/19 2:45 pm Unknown provider or service follow up:: 04/13/19 08:34 Follow-up with Dr. Plaza in [place]. Disposition: Home, Self-Skilled Nursing Medications: Home Medications Medication Instructions Recorded Confirmed Type Duloxetine HCl 60 mg PO DAILY 04/10/19 04/10/19 History Estradiol 2 mg PO DAILY 04/10/19 04/10/19 History Fexofenadine HCl [Allergy Relief] 180 mg PO DAILY 04/10/19 04/10/19 History Fluticasone Propionate [Flonase 1 spr NS DAILY 04/10/19 04/10/19 History 50mcg nasal spray 16gm] Hydrocodone/Acetaminophen 1 tab PO Q4-6H PRN 04/10/19 04/10/19 History [Hydrocodone-Acetamin 7.5-325] Levothyroxine Sodium 50 mcg PO DAILY 04/10/19 04/10/19 History [Levothyroxine 50mcg (0.05mg) Tab] Lisinopril [Lisinopril 10mg Tab] 10 mg PO DAILY 04/10/19 04/10/19 History Omeprazole 40 mg PO DAILY 04/10/19 04/10/19 History Potassium Chloride 20 meq PO DAILY 04/10/19 04/10/19 History Gabapentin [Neurontin 300mg 600 mg PO TID #90 cap 04/13/19 Rx capsule] Loperamide HCl [Imodium 2 mg 2 mg PO NEEDED PRN #40 cap 04/13/19 Rx capsule] clonazePAM [Klonopin 1mg tablet] 1 mg PO TID #60 tab 04/13/19 Rx Prescriptions/Medication Reconciliation: New Gabapentin [Neurontin 300mg capsule] 600 mg PO TID #90 cap Loperamide HCl [Imodium 2 mg capsule] 2 mg PO NEEDED PRN #40 cap PRN Reason: AFTER EACH LOOSE BOWEL MOVEMEN clonazePAM [Klonopin 1mg tablet] 1 mg PO TID #60 tab Continued Levothyroxine Sodium [Levothyroxine 50mcg (0.05mg) Tab] 50 mcg PO DAILY Omeprazole 40 mg PO DAILY Lisinopril [Lisinopril 10mg Tab] 10 mg PO DAILY Hydrocodone/Acetaminophen [Hydrocodone-Acetamin 7.5-325] 1 tab PO Q4-6H PRN PRN Reason: pain Duloxetine HCl 60 mg PO DAILY Fluticasone Propionate [Flonase 50mcg nasal spray 16gm] 1 spr NS DAILY Potassium Chloride 20 meq PO DAILY Fexofenadine HCl [Allergy Relief] 180 mg PO DAILY Estradiol 2 mg PO DAILY Discontinued Venlafaxine HCl [Effexor 37.5mg tablet] 37.5 mg PO TID Trazodone HCl 100 mg PO QPMWM Sertraline HCl [Zoloft 100mg tablet] 100 mg PO DAILY Gabapentin [Gabapentin 300mg Cap] 900 mg PO TID Baclofen [Lioresal 10mg tablet] 10 mg PO BID Bethanechol Chloride [Urecholine 25mg Tablet] 25 mg PO QID clonazePAM [Clonazepam] 1 mg PO BIDP PRN PRN Reason: Anxiety - Problem Reconciliation Problems Reviewed?: Yes
== END 2019-04-13 09:16 | disposition home or self-care (01) ==
LOC: 2ND 11:43 → ER 11:43 → 2ND 15:14
PROVIDERS: ADMIT Family Medicine; ATTEND Family Medicine
CPT/HCPCS: 36415; 70450; 71020; 71046; 74177; 80048; 80053; 81001; 82150; 83605; 83690; 84436; 84443; 84479; 84484; 85025; 87040; 87506; 88305; 93005; 94640; 94761; 96365; 96366; 96367; 96375; 99285; G0378; J2405; Q9967

== ENCOUNTER 2019-07-24 08:30 | Outpatient (RCR) | payer MEDICAID, SELFPAY | END 2019-07-24 08:35 | disposition home or self-care (01) | LOC: PT 08:30 | PROVIDERS: PCP Nurse Practitioner Family; Visit Provider Anesthesiology | DX: M48.07 Spinal stenosis, lumbosacral region (principal); M51.36 Other intervertebral disc degeneration, lumbar region | CPT/HCPCS: 97010; 97012; 97014; 97035; 97110; 97163; G0283 ==

== ENCOUNTER → 2019-07-24 14:37 | Outpatient (CLI) | payer MEDICAID, SELFPAY | PROVIDERS: Visit Provider Nurse Practitioner Family | DX: M54.9 Dorsalgia, unspecified (principal) | CPT/HCPCS: 87086 ==